=== PATIENT | male | born 1975 | race Caucasian/White ===

== ENCOUNTER 2017-11-13 11:50 | Emergency (ER) | payer OTHER ==
[2017-11-13 11:57] VITALS: O2SAT 100
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
[2017-11-13 15:06] VITALS: BP 159/74; PULSE 61; RESP 15; TEMP 98.2
== END 2017-11-13 15:29 | disposition home or self-care (01) ==
LOC: H.ER 11:50
DX: S16.1XXA Strain of muscle, fascia and tendon at neck level, initial encounter (principal); M54.9 Dorsalgia, unspecified; V43.52XA Car driver injured in collision with other type car in traffic accident, initial encounter; Y92.410 Unspecified street and highway as the place of occurrence of the external cause; I10 Essential (primary) hypertension